=== PATIENT | female | born 1965 | race Caucasian/White ===

== ENCOUNTER 2021-07-23 06:43 | Inpatient (IN) | payer MEDICAID ==
[~2021-07-23] VITALS: Ht 152.4 cm; Wt 92.1 kg
[2021-07-23 07:33] VITALS: BP 122/82
[2021-07-23] MEDS ORDERED: HYDROCHLOROTH12.5 M2 PO (07:38)
[2021-07-23] MEDS ORDERED: PROTONIX 20 MG20 MG PO (07:38)
[2021-07-23] MEDS ORDERED: LISINOPRIL20 MG PO (07:38)
[2021-07-23] MEDS ORDERED: PLAVIX 75 MG TA75 MG PO (07:39)
[2021-07-23] MEDS ORDERED: NEXIUM 40 MG CA40 M1 PO (07:39)
[2021-07-23] MEDS ORDERED: LOPRESSOR50 MG PO (07:39)
[2021-07-23] MEDS ORDERED: LIPITOR40 MG PO (07:39)
[2021-07-23 09:17] LABS: ABSOLUTE BASOPHILS 0.1 thou/uL (0.0-0.2); ABSOLUTE LYMPHOCYTES 1.7 thou/uL (0.8-5.3); ABSOLUTE MONOCYTES 1.1 thou/uL (0.0-1.2); ABSOLUTE NEUTROPHILS 14.1 thou/uL (1.6-8.1); BASOPHILS 0.5 %; EOSINOPHILS 0.2 %; HEMATOCRIT 33.6 % (37.0-47.0); HEMOGLOBIN 11.3 gm/dL (12.0-15.0); LYMPHOCYTES 9.7 %; MCH 27.4 pg (26.0-34.0); MCHC 33.6 g/dL (28.0-37.0); MCV 81.6 fL (80.0-100.0); MONOCYTES 6.7 %; MPV 5.8 fl. (7.2-11.1); NUCLEATED RBCS 0 /100WBC; PLATELET COUNT* 833 thou/uL (150-400); POLYS 82.9 %; RBC 4.11 mil/uL (4.20-5.00); RDW-CV 14.6 % (10.5-14.5)
[2021-07-23] MEDS ORDERED: FLEXERIL PO (09:35)
[2021-07-23] MEDS ORDERED: HYDROCODON-ACE1 EAC7 PO (09:35)
[2021-07-23 09:40] LABS: CALCIUM 8.8 mg/dL (8.5-10.1); CREATININE 0.8 mg/dL (0.6-1.3); POTASSIUM 3.7 mmol/L (3.5-5.1)
[2021-07-23 09:44] LABS: ALBUMIN 2.6 g/dL (3.4-5.0); TOTAL BILIRUBIN 0.3 mg/dL (<0.1-1.0); TOTAL PROTEIN 8.4 g/dL (6.4-8.2)
[2021-07-23 14:37] VITALS: BP 146/81
[2021-07-23 15:04] LABS: URINE BILIRUBIN NEGATIVE (Negative); URINE BLOOD 2+ (Negative); URINE CLARITY CLEAR; URINE COLOR YELLOW; URINE GLUCOSE-RANDOM NEGATIVE (Negative); URINE KETONES NEGATIVE (Negative); URINE LEUKOCYTES-REFLEX 1+ (Negative); URINE NITRITE-REFLEX NEGATIVE (Negative); URINE PROTEIN NEGATIVE (Negative)
[2021-07-23 15:12] LABS: AMORPHOUS URATES Many /LPF (None Seen)
[2021-07-23 15:13] LABS: CRYSTALS None Seen /LPF (None Seen); HYALINE CASTS 0-3 Few /LPF (None Seen); SQUAMOUS 4-10 Moderate /LPF (0-3); URINE WBC-REFLEX 6-15 Few /HPF (0-5)
--- NOTE | 2021-07-23 16:36 | EKG ---
[place] [address] ELECTROCARDIOGRAM REPORT Name: LUCIANO ALBERTS Room: [place] [address] ADM IN .R.#: [id number] Admission: 07/23/21 Attend Phys: Dcik Bello Discharge: Date of : 65 Date of Service: 07/23/21 1021 Report #: [id number] THIS REPORT FOR: //name// [facility] ED Test Date: 2021-07-23 Test Time: 10:21:58 Pat Name: LUCIANO ALBERTS Department: Room: [facility] Gender: F Kier Pleater: : 1965 Requested By: Rj Liu Order Number: [id number] MD: Sea Nicholson Measurements Intervals Cory Rate: 78 P: 50 OK: 165 QRS: -1 QRSD: 88 T: 72 QT: 359 QTc: 409 Interpretive Statements Sinus rhythm Low voltage, precordial leads Abnormal R-wave progression, early transition No previous ECG available for comparison Electronically Signed On 07-23-2021 16:36:20 [employer] by Sea Nicholson [email or web address] <ELECTRONICALLY SIGNED> By: Sea Nicholson MD, FACC 07/23/21 1636 1021 1021 Sea Nicholson MD, [facility] /EPI
[2021-07-23 18:30] VITALS: BP 139/77
[2021-07-23 21:31] VITALS: BP 150/85
[2021-07-23 21:45] VITALS: BP 151/90
[2021-07-24] VITALS: BP 144/84
[2021-07-24 04:00] VITALS: BP 150/80
[2021-07-24 07:35] LABS: GLYCOHEMOGLOBIN (HGB A1C) 6.6 % (4.8-5.6)
[2021-07-24 08:32] LABS: ABSOLUTE EOSINOPHILS 0.1 thou/uL (0.0-0.7); ABSOLUTE LYMPHOCYTES 2.1 thou/uL (0.8-5.3); ABSOLUTE MONOCYTES 1.1 thou/uL (0.0-1.2); BASOPHILS 0.2 %; EOSINOPHILS 0.8 %; HEMATOCRIT 29.8 % (37.0-47.0); HEMOGLOBIN 10.1 gm/dL (12.0-15.0); LYMPHOCYTES 15.9 %; MCH 27.9 pg (26.0-34.0); MCV 82.2 fL (80.0-100.0); MONOCYTES 8.4 %; MPV 5.6 fl. (7.2-11.1); NUCLEATED RBCS 0 /100WBC; PLATELET COUNT* 772 thou/uL (150-400); POLYS 74.7 %; RBC 3.63 mil/uL (4.20-5.00); RDW-CV 14.6 % (10.5-14.5); WBC 13.3 thou/uL (4.0-11.0)
[2021-07-24 08:38] LABS: CALCIUM 8.4 mg/dL (8.5-10.1); CREATININE 0.6 mg/dL (0.6-1.3); POTASSIUM 3.5 mmol/L (3.5-5.1)
[2021-07-24 11:49] VITALS: BP 106/66
[2021-07-24 12:00] VITALS: BP 106/66
[2021-07-24 16:00] VITALS: BP 106/66; BP 119/70
[2021-07-24 20:00] VITALS: BP 146/84
[2021-07-25 00:42] VITALS: BP 126/63
[2021-07-25 05:01] VITALS: BP 127/68
[2021-07-25 10:21] LABS: CALCIUM 8.7 mg/dL (8.5-10.1); CREATININE 0.8 mg/dL (0.6-1.3); POTASSIUM 3.2 mmol/L (3.5-5.1)
[2021-07-25 11:40] VITALS: BP 105/69
[2021-07-25 13:49] VITALS: BP 105/69
== END 2021-07-25 14:00 | disposition home or self-care (01) | DRG 641 ==
LOC: M.ERS 06:43 → M.TBA-ER 10:11 → M.2W 21:37
PROVIDERS: Family Medicine; ADMIT Internal Medicine; ATTEND Internal Medicine
DX: E87.1 Hypo-osmolality and hyponatremia (principal); E44.1 Mild protein-calorie malnutrition; F17.210 Nicotine dependence, cigarettes, uncomplicated; I10 Essential (primary) hypertension; E78.5 Hyperlipidemia, unspecified; D75.839 Thrombocytosis, unspecified; D64.9 Anemia, unspecified; E87.8 Other disorders of electrolyte and fluid balance, not elsewhere classified; K21.9 Gastro-esophageal reflux disease without esophagitis; Z68.39 Body mass index [BMI] 39.0-39.9, adult; I25.2 Old myocardial infarction; Z86.73 Personal history of transient ischemic attack (TIA), and cerebral infarction without residual deficits